=== PATIENT | male | born 1960 | race African-American/Black ===

== ENCOUNTER 2017-10-24 09:35 | Inpatient (IN) ==
[2017-10-31 08:22] VITALS: BP 122/88
== END 2017-10-31 11:15 | disposition home or self-care (01) | DRG 302 ==
LOC: N.ED 09:35 → SUATTDRO 12:33 → N.EDINP 12:33 → N.2W 14:02 → N.TELES 16:01
PROVIDERS: ATTEND Internal Medicine Infectious Disease

== ENCOUNTER 2018-02-04 18:20 | Inpatient (IN) ==
[2018-02-04 19:03] LABS: Basophils % 0.6 % (0.0-0.8); Eosinophils # 0.1 10*3/uL (0.0-0.87); Eosinophils % 0.8 % (0.00-10.9); Hematocrit 45.6 VOL% (42.0-52.0); Immature Granulocytes % 0.1 %; Immature Granulocytes Absolute 0.01 #; Lymphocytes # 3.4 10*3/uL (1.4-4.0); Lymphocytes % 47.8 % (21.2-54.2); Mean Corpuscular HGB Conc 30.3 GM/DL (32-36); Mean Corpuscular Hemoglobin 23 PG (27-34); Mean Corpuscular Volume 75.4 FL (87-102); Monocytes # 0.3 10*3/uL (0.11-0.8); Monocytes % 4.1 % (1.7-12.7); Neutrophils # 3.3 10*3/uL (1.4-7.4); Neutrophils % 46.6 % (38.7-73.9); Platelet Count 241 T/CUMM (130-400); Red Blood Count 6.05 MC/CUMM (3.8-5.5); Red Cell Distribution Width 19.5 % (9.3-17.3); White Blood Count 7.1 T/CUMM (4-12)
[2018-02-04 19:06] LABS: Hemoglobin 13.9 GM/DL (14.0-18.0)
[2018-02-04] MEDS ORDERED: ONDANSETRON 4 MG/2 ML VIAL IV STA (19:12)
[2018-02-04] MEDS ORDERED: methylPREDNISolone SOD SUC 125 MG/2 ML VIAL IV STA (19:12)
[2018-02-04] MEDS ORDERED: FUROSEMIDE 100 MG/10 ML VIAL IV STA (19:12)
[2018-02-04 19:29] LABS: Albumin 3.8 G/DL (3.4-5.0); Bilirubin,Total 1.4 MG/DL (0.2-1.0); Calcium 9.2 MG/DL (8.5-10.1); Total Protein 7.5 G/DL (6.4-8.3)
[2018-02-04] MEDS ORDERED: ALBUTEROL 2.5 MG/3 ML NEB RESP TX SCH (19:30)
[2018-02-04] MEDS ORDERED: cefTRIAXone 1,000 MG in SODIUM CHLORIDE 0.9% 100 ML IV STA (19:43)
[2018-02-04] MEDS ORDERED: POTASSIUM CHLORIDE 20 MEQ TABLET PO STA (19:43)
[2018-02-04] MEDS ORDERED: NITROGLYCERIN 2% OINT 1 INCH/GM PACK TOP STA (20:23)
[2018-02-04 20:34] LABS: INR 1.5
[2018-02-04] MEDS ORDERED: MAGNESIUM SULF RIDER 2 GM in PREMIX 1 EACH IV PRN (21:22)
[2018-02-04] MEDS ORDERED: MORPHINE 4 MG/1 ML VIAL IV PRN (21:22)
[2018-02-04] MEDS ORDERED: ACETAMINOPHEN 325 MG TABLET PO PRN (21:22)
[2018-02-04] MEDS ORDERED: MAGNESIUM SULF RIDER 4 GM in PREMIX 1 EACH IV PRN (21:22)
[2018-02-04] MEDS ORDERED: LACTULOSE 20 GM/30 ML UDCUP PO PRN (21:22)
[2018-02-04] MEDS ORDERED: ZALEPLON 5 MG CAPSULE PO PRN (21:22)
[2018-02-04] MEDS ORDERED: ONDANSETRON 4 MG/2 ML VIAL IV PRN (21:22)
[2018-02-04] MEDS ORDERED: diphenhydrAMINE CAP 25 MG CAPSULE PO PRN (21:22)
[2018-02-04] MEDS ORDERED: FUROSEMIDE 40 MG/4 ML VIAL IV STA (21:46)
[2018-02-04] MEDS ORDERED: LORATADINE 10 MG TABLET PO PRN (23:18)
[2018-02-04] MEDS ORDERED: MELATONIN 3 MG TABLET PO PRN (23:18)
[2018-02-05] MEDS: ALBUTEROL/IPRATROPIUM 3 ML NEB RESP TX SCH ×4 (00:42→19:38)
[2018-02-05 01:00] LABS: Basophils % 0.3 % (0.0-0.8); Hematocrit 39.9 VOL% (42.0-52.0); Hemoglobin 12.1 GM/DL (14.0-18.0); Immature Granulocytes % 0.5 %; Immature Granulocytes Absolute 0.04 #; Lymphocytes # 0.6 10*3/uL (1.4-4.0); Lymphocytes % 7.5 % (21.2-54.2); Mean Corpuscular HGB Conc 30.3 GM/DL (32-36); Mean Corpuscular Hemoglobin 23 PG (27-34); Mean Corpuscular Volume 75.3 FL (87-102); Monocytes # 0.1 10*3/uL (0.11-0.8); Monocytes % 1.2 % (1.7-12.7); Neutrophils # 6.8 10*3/uL (1.4-7.4); Neutrophils % 90.5 % (38.7-73.9); Platelet Count 213 T/CUMM (130-400); Red Cell Distribution Width 18.9 % (9.3-17.3); White Blood Count 7.6 T/CUMM (4-12)
[2018-02-05 01:31] LABS: Albumin 3.5 G/DL (3.4-5.0); Bilirubin,Total 1.3 MG/DL (0.2-1.0); Calcium 8.4 MG/DL (8.5-10.1); Osmolality,Calculated 289.1 MOS/KG (273-304); Potassium 2.8 MMOL/L (3.5-5.1); Risk Ratio 2.92; Thyroid Stimulating Hormone 1.85 uIU/ml (0.358-3.74); VLDL CHOLESTEROL 9.6 MG/DL
[2018-02-05] MEDS: POTASSIUM CHLORIDE 20 MEQ TABLET PO PRN ×4 (02:43→08:37)
[2018-02-05] MEDS ORDERED: POTASSIUM CHLORIDE 20 MEQ TABLET PO PRN (07:27)
[2018-02-05] MEDS: PANTOPRAZOLE 40 MG TABLET PO SCH (08:37)
[2018-02-05] MEDS: SPIRONOLACTONE 25 MG TABLET PO SCH ×2 (08:37→21:20)
[2018-02-05] MEDS: LISINOPRIL 5 MG TABLET PO SCH ×2 (08:37→21:21)
[2018-02-05] MEDS: CARVEDILOL 6.25 MG TABLET PO SCH ×2 (08:37→21:20)
[2018-02-05] MEDS: ASPIRIN EC 81 MG TABLET PO SCH (08:37)
[2018-02-05] MEDS: FUROSEMIDE 40 MG/4 ML VIAL IV SCH ×2 (08:38→16:08)
[2018-02-05] MEDS ORDERED: cefTRIAXone 1,000 MG in SYRINGE 1 EACH IV SCH (09:00)
[2018-02-05 14:37] LABS: Calcium 8.3 MG/DL (8.5-10.1); Osmolality,Calculated 287.3 MOS/KG (273-304); Potassium 3.8 MMOL/L (3.5-5.1)
[2018-02-05] MEDS: WARFARIN 7.5 MG TABLET PO SCH (17:53)
[2018-02-05] MEDS: LOVASTATIN 20 MG TABLET PO SCH (21:21)
[2018-02-06] MEDS: ALBUTEROL/IPRATROPIUM 3 ML NEB RESP TX SCH ×4 (00:13→19:14)
[2018-02-06 02:59] LABS: Barbiturates Screen,Urine Negative (Negative); Benzodiazepines Screen,Urine Negative (Negative); Cannabinoid Screen,Urine Negative (Negative); Opiate Screen,Urine Negative (Negative); Phencyclidine Screen,Urine Negative (Negative)
[2018-02-06 04:42] LABS: Basophils % 0.1 % (0.0-0.8); Hemoglobin 10.8 GM/DL (14.0-18.0); Immature Granulocytes % 0.3 %; Immature Granulocytes Absolute 0.04 #; Lymphocytes # 2.3 10*3/uL (1.4-4.0); Lymphocytes % 17.4 % (21.2-54.2); Mean Corpuscular HGB Conc 29.3 GM/DL (32-36); Mean Corpuscular Hemoglobin 22 PG (27-34); Mean Corpuscular Volume 76.3 FL (87-102); Monocytes # 0.6 10*3/uL (0.11-0.8); Monocytes % 4.8 % (1.7-12.7); Neutrophils % 77.4 % (38.7-73.9); Platelet Count 192 T/CUMM (130-400); Red Blood Count 4.82 MC/CUMM (3.8-5.5); Red Cell Distribution Width 19.1 % (9.3-17.3)
[2018-02-06 04:46] LABS: INR 1.3; PT Patient Result 13.3 SECS
[2018-02-06 04:57] LABS: Hematocrit 36.1 VOL% (42.0-52.0); Mean Platelet Volume 12.4 FL (9.6-12.0)
[2018-02-06 05:06] LABS: Potassium 3.6 MMOL/L (3.5-5.1)
[2018-02-06 05:12] LABS: Anisocytosis 1+; Macrocytosis 1+; Platelet Estimate Normal; Polychromasia Slight
[2018-02-06 05:13] LABS: Hypochromasia Slight; Poikilocytosis 1+; Target Cells 1+
[2018-02-06] MEDS: cefTRIAXone 1,000 MG in SYRINGE 1 EACH IV SCH (08:50)
[2018-02-06] MEDS: FUROSEMIDE 40 MG/4 ML VIAL IV SCH (08:53)
[2018-02-06] MEDS: LISINOPRIL 5 MG TABLET PO SCH ×2 (08:55→22:19)
[2018-02-06] MEDS: SPIRONOLACTONE 25 MG TABLET PO SCH ×2 (08:55→22:19)
[2018-02-06] MEDS: PANTOPRAZOLE 40 MG TABLET PO SCH (08:55)
[2018-02-06] MEDS: CARVEDILOL 6.25 MG TABLET PO SCH ×2 (08:55→22:19)
[2018-02-06] MEDS: ASPIRIN EC 81 MG TABLET PO SCH (08:55)
[2018-02-06] MEDS: DOXYCYCLINE HYCLATE INJ 100 MG in SODIUM CHLORIDE 0.9% 100 ML IV SCH (12:30)
[2018-02-06] MEDS: WARFARIN 7.5 MG TABLET PO SCH (17:08)
[2018-02-06] MEDS: LOVASTATIN 20 MG TABLET PO SCH (22:19)
[2018-02-07] MEDS: ALBUTEROL/IPRATROPIUM 3 ML NEB RESP TX SCH ×2 (00:22→07:54)
[2018-02-07] MEDS: DOXYCYCLINE HYCLATE INJ 100 MG in SODIUM CHLORIDE 0.9% 100 ML IV SCH (00:58)
[2018-02-07 03:38] LABS: Basophils # 0.1 10*3/uL (0.0-0.2); Basophils % 0.6 % (0.0-0.8); Eosinophils # 0.2 10*3/uL (0.0-0.87); Eosinophils % 1.9 % (0.00-10.9); Hematocrit 39.1 VOL% (42.0-52.0); Hemoglobin 11.8 GM/DL (14.0-18.0); Immature Granulocytes % 0.5 %; Immature Granulocytes Absolute 0.04 #; Lymphocytes # 3.7 10*3/uL (1.4-4.0); Lymphocytes % 45.5 % (21.2-54.2); Mean Corpuscular HGB Conc 30.2 GM/DL (32-36); Mean Corpuscular Hemoglobin 23 PG (27-34); Mean Corpuscular Volume 75.3 FL (87-102); Monocytes # 0.4 10*3/uL (0.11-0.8); Monocytes % 4.6 % (1.7-12.7); Neutrophils # 3.8 10*3/uL (1.4-7.4); Neutrophils % 46.9 % (38.7-73.9); Platelet Count 219 T/CUMM (130-400); Red Blood Count 5.19 MC/CUMM (3.8-5.5); Red Cell Distribution Width 18.8 % (9.3-17.3); White Blood Count 8.1 T/CUMM (4-12)
[2018-02-07 03:45] LABS: INR 1.4; PT Patient Result 14.5 SECS
[2018-02-07 03:56] LABS: Calcium 8.4 MG/DL (8.5-10.1); Osmolality,Calculated 287.3 MOS/KG (273-304); Potassium 3.7 MMOL/L (3.5-5.1)
[2018-02-07 04:09] LABS: Anisocytosis 2+; Hypochromasia 1+; Microcytosis 1+; Ovalocytes 1+; Platelet Estimate Normal
[2018-02-07 08:02] VITALS: BP 109/55
[2018-02-07] MEDS ORDERED: FUROSEMIDE 40 MG TABLET PO SCH (09:00)
[2018-02-07] MEDS: PANTOPRAZOLE 40 MG TABLET PO SCH (09:50)
[2018-02-07] MEDS: LISINOPRIL 5 MG TABLET PO SCH (09:50)
[2018-02-07] MEDS: CARVEDILOL 6.25 MG TABLET PO SCH (09:50)
[2018-02-07] MEDS: ASPIRIN EC 81 MG TABLET PO SCH (09:50)
[2018-02-07] MEDS: SPIRONOLACTONE 25 MG TABLET PO SCH (09:50)
[2018-02-07] MEDS: POTASSIUM CHLORIDE 20 MEQ TABLET PO PRN (09:51)
[2018-02-07] MEDS: cefTRIAXone 1,000 MG in SYRINGE 1 EACH IV SCH (09:52)
== END 2018-02-07 11:30 | disposition home or self-care (01) | DRG 291 ==
LOC: N.ED 18:20 → N.EDINP 21:22 → SUATTDRO 21:22 → N.TELEN 22:25
PROVIDERS: ADMIT Internal Medicine; ATTEND Family Medicine

== ENCOUNTER 2018-03-17 21:49 | Inpatient (IN) ==
[2018-03-17] MEDS ORDERED: FUROSEMIDE 100 MG/10 ML VIAL IV STA (22:34)
[2018-03-17] MEDS ORDERED: ALBUTEROL/IPRATROPIUM 3 ML NEB RESP TX STA (22:34)
[2018-03-17] MEDS ORDERED: ONDANSETRON 4 MG/2 ML VIAL IV STA (22:34)
[2018-03-17 22:47] LABS: Basophils # 0.1 10*3/uL (0.0-0.2); Basophils % 0.8 % (0.0-0.8); Eosinophils % 0.6 % (0.00-10.9); Hematocrit 39.4 VOL% (42.0-52.0); Hemoglobin 11.9 GM/DL (14.0-18.0); Immature Granulocytes % 0.3 %; Immature Granulocytes Absolute 0.02 #; Lymphocytes # 2.6 10*3/uL (1.4-4.0); Lymphocytes % 40.9 % (21.2-54.2); Mean Corpuscular HGB Conc 30.2 GM/DL (32-36); Mean Corpuscular Hemoglobin 22 PG (27-34); Mean Corpuscular Volume 73.4 FL (87-102); Monocytes # 0.4 10*3/uL (0.11-0.8); Monocytes % 6.1 % (1.7-12.7); Neutrophils # 3.3 10*3/uL (1.4-7.4); Neutrophils % 51.3 % (38.7-73.9); Platelet Count 215 T/CUMM (130-400); Red Blood Count 5.37 MC/CUMM (3.8-5.5); Red Cell Distribution Width 19.2 % (9.3-17.3); White Blood Count 6.4 T/CUMM (4-12)
[2018-03-17 23:04] LABS: INR 1.3; PT Patient Result 14.2 SECS; Partial Thromboplastin Time 25.7 SECS (0-40)
[2018-03-17 23:14] LABS: Alanine Aminotransferase 29 U/L (16-61); Albumin 3.2 G/DL (3.4-5.0); Alkaline Phosphatase 70 U/L (45-117); Aspartate Amino Transferase 36 U/L (0-37); Blood Urea Nitrogen 14 MG/DL (7-18); Calcium 8.7 MG/DL (8.5-10.1); Glucose 146 MG/DL (74-106); Osmolality,Calculated 295.4 MOS/KG (273-304); Potassium 3.9 MMOL/L (3.5-5.1); Sodium 147 MMOL/L (136-145); Troponin I 0.027 NG/ML (0.00-0.045)
[2018-03-17] MEDS ORDERED: hydrALAZINE 20 MG/1 ML VIAL IV STA (23:54)
[2018-03-18 00:07] LABS: Apearance,Urine CLEAR (Clear); Bilirubin,Urine Negative (Negative); Blood, Urine Negative (Negative); Glucose,Urine (UA) Negative (Negative); Ketones,Urine Negative (Negative); Nitrite,Urine Negative (Negative); Protein,Urine 100 MG/DL; Urine Color Straw (Yellow); Urine Specific Gravity 1.009 (1.001-1.035); Urine Urobilinogen < 2.0 EU/DL (0.2-1.0); WBC,Urine <1 /HPF (0-6)
[2018-03-18 00:27] LABS: Barbiturates Screen,Urine Negative (Negative); Benzodiazepines Screen,Urine Negative (Negative); Cannabinoid Screen,Urine Negative (Negative); Opiate Screen,Urine Negative (Negative); Phencyclidine Screen,Urine Negative (Negative)
[2018-03-18] MEDS ORDERED: ONDANSETRON 4 MG/2 ML VIAL IV PRN (01:22)
[2018-03-18] MEDS ORDERED: ENOXAPARIN 40 MG/0.4 ML SYRINGE SUBCUT SCH (01:30)
[2018-03-18] MEDS ORDERED: ALBUTEROL/IPRATROPIUM 3 ML NEB RESP TX PRN (01:44)
[2018-03-18] MEDS: ENOXAPARIN 100 MG/ML SYRINGE SUBCUT SCH ×2 (03:00→14:15)
[2018-03-18 05:31] LABS: INR 1.4; PT Patient Result 14.7 SECS
[2018-03-18 05:32] LABS: Calcium 8.5 MG/DL (8.5-10.1); Osmolality,Calculated 292.4 MOS/KG (273-304); Potassium 3.4 MMOL/L (3.5-5.1); Risk Ratio 2.11; VLDL CHOLESTEROL 9.8 MG/DL
[2018-03-18 05:59] LABS: Basophils % 0.6 % (0.0-0.8); Eosinophils # 0.1 10*3/uL (0.0-0.87); Eosinophils % 0.9 % (0.00-10.9); Hematocrit 36.9 VOL% (42.0-52.0); Hemoglobin 11.2 GM/DL (14.0-18.0); Immature Granulocytes % 0.3 %; Immature Granulocytes Absolute 0.02 #; Lymphocytes # 2.9 10*3/uL (1.4-4.0); Mean Corpuscular HGB Conc 30.4 GM/DL (32-36); Mean Corpuscular Hemoglobin 22 PG (27-34); Mean Corpuscular Volume 73.5 FL (87-102); Monocytes # 0.4 10*3/uL (0.11-0.8); Monocytes % 6.6 % (1.7-12.7); Neutrophils # 3.1 10*3/uL (1.4-7.4); Neutrophils % 47.6 % (38.7-73.9); Platelet Count 257 T/CUMM (130-400); Red Blood Count 5.02 MC/CUMM (3.8-5.5); Red Cell Distribution Width 18.8 % (9.3-17.3); White Blood Count 6.5 T/CUMM (4-12)
[2018-03-18 06:09] LABS: Hypochromasia 1+; Platelet Estimate Adequate
[2018-03-18] MEDS ORDERED: POTASSIUM CHLORIDE 20 MEQ TABLET PO SCH (09:00)
[2018-03-18] MEDS ORDERED: CARVEDILOL 6.25 MG TABLET PO SCH (09:00)
[2018-03-18] MEDS: LISINOPRIL 5 MG TABLET PO SCH ×2 (09:23→21:57)
[2018-03-18] MEDS: SPIRONOLACTONE 25 MG TABLET PO SCH ×2 (09:23→21:57)
[2018-03-18] MEDS: POTASSIUM CHLORIDE 10 MEQ TABLET PO SCH ×2 (09:23→21:57)
[2018-03-18] MEDS: PANTOPRAZOLE 40 MG TABLET PO SCH (09:23)
[2018-03-18] MEDS: ASPIRIN EC 81 MG TABLET PO SCH (09:23)
[2018-03-18] MEDS: FUROSEMIDE 40 MG/4 ML VIAL IV SCH ×2 (09:28→17:25)
[2018-03-18] MEDS ORDERED: CARVEDILOL 6.25 MG TABLET PO ONE (10:00)
[2018-03-18] MEDS ORDERED: WARFARIN 4 MG TABLET PO SCH (18:00)
[2018-03-18] MEDS: LOVASTATIN 20 MG TABLET PO SCH (21:57)
[2018-03-18] MEDS: CARVEDILOL 12.5 MG TABLET PO SCH (21:59)
[2018-03-19] MEDS: ENOXAPARIN 100 MG/ML SYRINGE SUBCUT SCH ×2 (03:55→16:03)
[2018-03-19 05:29] LABS: INR 1.4; PT Patient Result 15.4 SECS; PT Patient Result 15.5 SECS; Partial Thromboplastin Time 29.4 SECS (0-40)
[2018-03-19 05:31] LABS: Basophils # 0.1 10*3/uL (0.0-0.2); Basophils % 1.1 % (0.0-0.8); Eosinophils # 0.1 10*3/uL (0.0-0.87); Eosinophils % 1.6 % (0.00-10.9); Hematocrit 37.9 VOL% (42.0-52.0); Hemoglobin 11.3 GM/DL (14.0-18.0); Immature Granulocytes % 0.2 %; Immature Granulocytes Absolute 0.01 #; Lymphocytes # 3.3 10*3/uL (1.4-4.0); Lymphocytes % 57.9 % (21.2-54.2); Mean Corpuscular HGB Conc 29.8 GM/DL (32-36); Mean Corpuscular Hemoglobin 22 PG (27-34); Monocytes # 0.4 10*3/uL (0.11-0.8); Monocytes % 7.3 % (1.7-12.7); Neutrophils # 1.8 10*3/uL (1.4-7.4); Neutrophils % 31.9 % (38.7-73.9); Platelet Count 202 T/CUMM (130-400); Red Blood Count 5.19 MC/CUMM (3.8-5.5); Red Cell Distribution Width 18.6 % (9.3-17.3); White Blood Count 5.6 T/CUMM (4-12)
[2018-03-19 05:40] LABS: Calcium 8.7 MG/DL (8.5-10.1); Osmolality,Calculated 289.6 MOS/KG (273-304); Potassium 3.5 MMOL/L (3.5-5.1)
[2018-03-19 06:01] LABS: Band Neutrophils 4 % (0-10); Eosinophils 2 % (0-10); Lymphocytes 61 % (20-55); Platelet Estimate Normal; Segmented Neutrophils 27 % (50-85); Total Cells Counted 100
[2018-03-19 06:02] LABS: Anisocytosis 2+; Hypochromasia 2+; Microcytosis 2+; Ovalocytes 2+; Target Cells 2+
[2018-03-19] MEDS: POTASSIUM CHLORIDE 10 MEQ TABLET PO SCH ×2 (08:54→22:30)
[2018-03-19] MEDS: CARVEDILOL 12.5 MG TABLET PO SCH (08:54)
[2018-03-19] MEDS: PANTOPRAZOLE 40 MG TABLET PO SCH (08:54)
[2018-03-19] MEDS: FUROSEMIDE 40 MG/4 ML VIAL IV SCH ×2 (08:54→16:03)
[2018-03-19] MEDS: ASPIRIN EC 81 MG TABLET PO SCH (08:54)
[2018-03-19] MEDS: SPIRONOLACTONE 25 MG TABLET PO SCH ×2 (08:55→22:29)
[2018-03-19] MEDS: LISINOPRIL 5 MG TABLET PO SCH ×2 (08:55→22:29)
[2018-03-19] MEDS ORDERED: POTASSIUM CHLORIDE RIDER 10 MEQ in PREMIX 1 EACH IV PRN (12:27)
[2018-03-19] MEDS ORDERED: MAGNESIUM SULF RIDER 2 GM in PREMIX 1 EACH IV PRN (12:27)
[2018-03-19] MEDS: hydrALAZINE 25 MG TABLET PO SCH ×2 (16:03→22:30)
[2018-03-19] MEDS: CARVEDILOL 6.25 MG TABLET PO SCH (22:29)
[2018-03-19] MEDS: LOVASTATIN 20 MG TABLET PO SCH (22:30)
[2018-03-20] MEDS: ENOXAPARIN 100 MG/ML SYRINGE SUBCUT SCH ×2 (02:18→15:01)
[2018-03-20 04:55] LABS: INR 1.4; Partial Thromboplastin Time 31.2 SECS (0-40)
[2018-03-20 05:02] LABS: Basophils % 0.6 % (0.0-0.8); Eosinophils # 0.1 10*3/uL (0.0-0.87); Eosinophils % 1.1 % (0.00-10.9); Hematocrit 35.1 VOL% (42.0-52.0); Hemoglobin 10.7 GM/DL (14.0-18.0); Immature Granulocytes % 0.2 %; Immature Granulocytes Absolute 0.01 #; Lymphocytes % 46.2 % (21.2-54.2); Mean Corpuscular HGB Conc 30.5 GM/DL (32-36); Mean Corpuscular Hemoglobin 22 PG (27-34); Mean Corpuscular Volume 72.2 FL (87-102); Monocytes # 0.5 10*3/uL (0.11-0.8); Monocytes % 7.6 % (1.7-12.7); Neutrophils # 2.9 10*3/uL (1.4-7.4); Neutrophils % 44.3 % (38.7-73.9); Platelet Count 216 T/CUMM (130-400); Red Blood Count 4.86 MC/CUMM (3.8-5.5); Red Cell Distribution Width 17.9 % (9.3-17.3); White Blood Count 6.5 T/CUMM (4-12)
[2018-03-20 05:17] LABS: Calcium 8.4 MG/DL (8.5-10.1); Osmolality,Calculated 291.7 MOS/KG (273-304); Potassium 3.7 MMOL/L (3.5-5.1)
[2018-03-20] MEDS: FUROSEMIDE 40 MG/4 ML VIAL IV SCH ×2 (10:06→15:02)
[2018-03-20] MEDS: ASPIRIN EC 81 MG TABLET PO SCH (10:07)
[2018-03-20] MEDS: ACETAMINOPHEN 325 MG TABLET PO PRN (10:07)
[2018-03-20] MEDS: POTASSIUM CHLORIDE 10 MEQ TABLET PO SCH ×2 (10:07→22:26)
[2018-03-20] MEDS: metOLazone 2.5 MG TABLET PO SCH (10:07)
[2018-03-20] MEDS: LISINOPRIL 5 MG TABLET PO SCH ×2 (10:07→22:26)
[2018-03-20] MEDS: hydrALAZINE 25 MG TABLET PO SCH ×3 (10:08→22:27)
[2018-03-20] MEDS: ISOSORBIDE MONONITRATE 30 MG TABLET PO SCH (10:08)
[2018-03-20] MEDS: SPIRONOLACTONE 25 MG TABLET PO SCH ×2 (10:08→22:27)
[2018-03-20] MEDS: CARVEDILOL 6.25 MG TABLET PO SCH ×2 (10:08→22:27)
[2018-03-20] MEDS: PANTOPRAZOLE 40 MG TABLET PO SCH (10:11)
[2018-03-20] MEDS: LOVASTATIN 20 MG TABLET PO SCH (22:27)
[2018-03-21] MEDS: ENOXAPARIN 100 MG/ML SYRINGE SUBCUT SCH ×2 (03:11→15:13)
[2018-03-21 04:25] LABS: Basophils % 0.6 % (0.0-0.8); Eosinophils # 0.1 10*3/uL (0.0-0.87); Hematocrit 35.1 VOL% (42.0-52.0); Hemoglobin 10.8 GM/DL (14.0-18.0); Immature Granulocytes % 0.1 %; Immature Granulocytes Absolute 0.01 #; Lymphocytes # 2.8 10*3/uL (1.4-4.0); Lymphocytes % 40.4 % (21.2-54.2); Mean Corpuscular HGB Conc 30.8 GM/DL (32-36); Mean Corpuscular Hemoglobin 22 PG (27-34); Mean Corpuscular Volume 71.2 FL (87-102); Monocytes # 0.5 10*3/uL (0.11-0.8); Monocytes % 7.5 % (1.7-12.7); Neutrophils # 3.4 10*3/uL (1.4-7.4); Neutrophils % 50.4 % (38.7-73.9); Platelet Count 231 T/CUMM (130-400); Red Blood Count 4.93 MC/CUMM (3.8-5.5); Red Cell Distribution Width 17.9 % (9.3-17.3); White Blood Count 6.8 T/CUMM (4-12)
[2018-03-21 04:42] LABS: Calcium 8.4 MG/DL (8.5-10.1); Osmolality,Calculated 288.7 MOS/KG (273-304); Potassium 3.6 MMOL/L (3.5-5.1)
[2018-03-21 05:58] LABS: Acanthocytes Few; Elliptocytes Few; Hypochromasia 2+; Microcytosis 2+; Target Cells 1+
[2018-03-21 05:59] LABS: Platelet Estimate Normal
[2018-03-21] MEDS: FUROSEMIDE 40 MG/4 ML VIAL IV SCH ×2 (08:45→15:16)
[2018-03-21] MEDS: SPIRONOLACTONE 25 MG TABLET PO SCH ×2 (08:46→21:10)
[2018-03-21] MEDS: POTASSIUM CHLORIDE 10 MEQ TABLET PO SCH ×2 (08:46→21:09)
[2018-03-21] MEDS: CARVEDILOL 6.25 MG TABLET PO SCH ×2 (08:46→21:09)
[2018-03-21] MEDS: LISINOPRIL 5 MG TABLET PO SCH (08:46)
[2018-03-21] MEDS: metOLazone 2.5 MG TABLET PO SCH (08:46)
[2018-03-21] MEDS: PANTOPRAZOLE 40 MG TABLET PO SCH (08:47)
[2018-03-21] MEDS: ISOSORBIDE MONONITRATE 30 MG TABLET PO SCH (08:47)
[2018-03-21] MEDS: ASPIRIN EC 81 MG TABLET PO SCH (08:47)
[2018-03-21] MEDS: hydrALAZINE 25 MG TABLET PO SCH ×3 (08:47→21:10)
[2018-03-21] MEDS ORDERED: FUROSEMIDE 100 MG/10 ML VIAL ONE (15:03)
[2018-03-21] MEDS: LOVASTATIN 20 MG TABLET PO SCH (21:09)
[2018-03-21] MEDS: ACETAMINOPHEN 325 MG TABLET PO PRN (21:09)
[2018-03-22] MEDS: ENOXAPARIN 100 MG/ML SYRINGE SUBCUT SCH ×2 (02:32→15:30)
[2018-03-22 05:08] LABS: Basophils % 0.5 % (0.0-0.8); Eosinophils # 0.1 10*3/uL (0.0-0.87); Eosinophils % 1.1 % (0.00-10.9); Hematocrit 34.3 VOL% (42.0-52.0); Hemoglobin 10.5 GM/DL (14.0-18.0); Immature Granulocytes % 0.2 %; Immature Granulocytes Absolute 0.01 #; Lymphocytes # 3.2 10*3/uL (1.4-4.0); Lymphocytes % 52.5 % (21.2-54.2); Mean Corpuscular HGB Conc 30.6 GM/DL (32-36); Mean Corpuscular Hemoglobin 22 PG (27-34); Mean Corpuscular Volume 71.3 FL (87-102); Monocytes # 0.4 10*3/uL (0.11-0.8); Monocytes % 7.2 % (1.7-12.7); Neutrophils # 2.3 10*3/uL (1.4-7.4); Neutrophils % 38.5 % (38.7-73.9); Platelet Count 196 T/CUMM (130-400); Red Blood Count 4.81 MC/CUMM (3.8-5.5); Red Cell Distribution Width 17.7 % (9.3-17.3); White Blood Count 6.1 T/CUMM (4-12)
[2018-03-22 05:36] LABS: Calcium 8.5 MG/DL (8.5-10.1); Osmolality,Calculated 284.1 MOS/KG (273-304); Potassium 3.6 MMOL/L (3.5-5.1)
[2018-03-22 07:05] LABS: Acanthocytes Few; Anisocytosis 1+; Band Neutrophils 2 % (0-10); Elliptocytes 1+; Eosinophils 2 % (0-10); Hypochromasia 2+; Lymphocytes 55 % (20-55); Microcytosis 1+; Ovalocytes 1+; Platelet Estimate Normal; Segmented Neutrophils 34 % (50-85); Target Cells 2+; Total Cells Counted 100
[2018-03-22 08:36] LABS: INR 1.3; PT Patient Result 14.1 SECS
[2018-03-22] MEDS: FUROSEMIDE 40 MG/4 ML VIAL IV SCH ×2 (09:12→15:21)
[2018-03-22] MEDS: CARVEDILOL 6.25 MG TABLET PO SCH ×2 (09:13→21:20)
[2018-03-22] MEDS: hydrALAZINE 25 MG TABLET PO SCH ×3 (09:13→21:21)
[2018-03-22] MEDS: SPIRONOLACTONE 25 MG TABLET PO SCH ×2 (09:13→21:20)
[2018-03-22] MEDS: ASPIRIN EC 81 MG TABLET PO SCH (09:13)
[2018-03-22] MEDS: ISOSORBIDE MONONITRATE 30 MG TABLET PO SCH (09:13)
[2018-03-22] MEDS: POTASSIUM CHLORIDE 10 MEQ TABLET PO SCH ×2 (09:13→21:21)
[2018-03-22] MEDS: PANTOPRAZOLE 40 MG TABLET PO SCH (09:48)
[2018-03-22] MEDS ORDERED: SODIUM CHLORIDE 0.9% 1,000 ML IV SCH (20:30)
[2018-03-22] MEDS: LOVASTATIN 20 MG TABLET PO SCH (21:21)
[2018-03-23 05:03] LABS: Basophils % 0.5 % (0.0-0.8); Eosinophils # 0.1 10*3/uL (0.0-0.87); Eosinophils % 0.8 % (0.00-10.9); Hemoglobin 11.2 GM/DL (14.0-18.0); Immature Granulocytes % 0.5 %; Immature Granulocytes Absolute 0.03 #; Lymphocytes # 2.4 10*3/uL (1.4-4.0); Lymphocytes % 39.7 % (21.2-54.2); Mean Corpuscular HGB Conc 31.1 GM/DL (32-36); Mean Corpuscular Hemoglobin 22 PG (27-34); Mean Corpuscular Volume 70.6 FL (87-102); Monocytes # 0.5 10*3/uL (0.11-0.8); Monocytes % 7.7 % (1.7-12.7); Neutrophils # 3.1 10*3/uL (1.4-7.4); Neutrophils % 50.8 % (38.7-73.9); Platelet Count 220 T/CUMM (130-400); Red Cell Distribution Width 18.2 % (9.3-17.3); White Blood Count 6.1 T/CUMM (4-12)
[2018-03-23 05:12] LABS: INR 1.3; PT Patient Result 13.7 SECS
[2018-03-23 05:13] LABS: Calcium 8.9 MG/DL (8.5-10.1); Osmolality,Calculated 280.3 MOS/KG (273-304); Potassium 3.9 MMOL/L (3.5-5.1)
[2018-03-23 05:22] LABS: Hypochromasia 1+; Microcytosis Slight; Ovalocytes Slight; Platelet Estimate Adequate
[2018-03-23 05:23] LABS: Target Cells Slight
[2018-03-23] MEDS: hydrALAZINE 25 MG TABLET PO SCH ×3 (08:07→22:50)
[2018-03-23] MEDS: SPIRONOLACTONE 25 MG TABLET PO SCH ×2 (08:07→21:37)
[2018-03-23] MEDS: ASPIRIN EC 81 MG TABLET PO SCH (08:07)
[2018-03-23] MEDS: ISOSORBIDE MONONITRATE 30 MG TABLET PO SCH (08:08)
[2018-03-23] MEDS: CARVEDILOL 6.25 MG TABLET PO SCH ×2 (08:08→21:37)
[2018-03-23] MEDS: PANTOPRAZOLE 40 MG TABLET PO SCH (08:08)
[2018-03-23] MEDS ORDERED: HEPARIN/NACL 0.9% 2 UNITS/ML 1,000 ML IV ONE ×2 (09:30→10:29)
[2018-03-23] MEDS ORDERED: LIDOCAINE 1%/EPI INJ 20 ML VIAL ONE ×2 (09:30→10:29)
[2018-03-23] MEDS ORDERED: MIDAZOLAM 2 MG/2 ML VIAL ONE (09:50)
[2018-03-23] MEDS ORDERED: fentaNYL 100 MCG/2 ML VIAL ONE (09:50)
[2018-03-23] MEDS ORDERED: diphenhydrAMINE CAP 25 MG CAPSULE PO ONE (10:00)
[2018-03-23] MEDS ORDERED: DIAZEPAM 5 MG TABLET PO ONE (10:00)
[2018-03-23] MEDS: FUROSEMIDE 40 MG/4 ML VIAL IV SCH (12:59)
[2018-03-23] MEDS: POTASSIUM CHLORIDE 10 MEQ TABLET PO SCH ×2 (13:28→21:37)
[2018-03-23] MEDS: ACETAMINOPHEN 325 MG TABLET PO PRN (14:08)
[2018-03-23] MEDS: FUROSEMIDE 80 MG TABLET PO SCH (15:47)
[2018-03-23] MEDS: LOVASTATIN 20 MG TABLET PO SCH (21:39)
[2018-03-24 04:02] LABS: Basophils % 0.5 % (0.0-0.8); Eosinophils # 0.1 10*3/uL (0.0-0.87); Eosinophils % 0.8 % (0.00-10.9); Hematocrit 35.4 VOL% (42.0-52.0); Immature Granulocytes % 0.3 %; Immature Granulocytes Absolute 0.02 #; Lymphocytes # 2.2 10*3/uL (1.4-4.0); Mean Corpuscular HGB Conc 31.1 GM/DL (32-36); Mean Corpuscular Hemoglobin 22 PG (27-34); Mean Corpuscular Volume 70.8 FL (87-102); Monocytes # 0.6 10*3/uL (0.11-0.8); Monocytes % 8.4 % (1.7-12.7); Neutrophils # 3.7 10*3/uL (1.4-7.4); Platelet Count 226 T/CUMM (130-400); Red Cell Distribution Width 18.5 % (9.3-17.3); White Blood Count 6.5 T/CUMM (4-12)
[2018-03-24 04:10] LABS: INR 1.2; PT Patient Result 13.4 SECS
[2018-03-24 04:20] LABS: Calcium 8.3 MG/DL (8.5-10.1); Osmolality,Calculated 281.3 MOS/KG (273-304); Potassium 4.2 MMOL/L (3.5-5.1)
[2018-03-24 04:46] LABS: Hypochromasia 1+; Platelet Estimate Normal; Polychromasia Few
[2018-03-24] MEDS: CARVEDILOL 6.25 MG TABLET PO SCH (08:31)
[2018-03-24] MEDS: POTASSIUM CHLORIDE 10 MEQ TABLET PO SCH (08:31)
[2018-03-24] MEDS: PANTOPRAZOLE 40 MG TABLET PO SCH (08:31)
[2018-03-24] MEDS: hydrALAZINE 25 MG TABLET PO SCH (08:31)
[2018-03-24] MEDS: FUROSEMIDE 80 MG TABLET PO SCH (08:31)
[2018-03-24] MEDS: SPIRONOLACTONE 25 MG TABLET PO SCH (08:31)
[2018-03-24] MEDS: ASPIRIN EC 81 MG TABLET PO SCH (08:31)
[2018-03-24] MEDS: ISOSORBIDE MONONITRATE 30 MG TABLET PO SCH (08:31)
[2018-03-24 12:15] VITALS: BP 112/77
== END 2018-03-24 13:15 | disposition home or self-care (01) | DRG 286 ==
LOC: N.ED 21:49 → N.EDINP 03-18 01:22 → N.TELES 03-18 01:53
PROVIDERS: ADMIT Internal Medicine; ATTEND Internal Medicine